=== PATIENT | female | born 1980 | race Hispanic/Latino ===

== ENCOUNTER 2019-01-02 15:59 | Outpatient (CLI) | payer BC ==
--- NOTE | 2019-01-02 16:44 | ULT ---
FTransabdominal pelvic ultrasound: 01/02/2019 COMPARISON: None available HISTORY: 38-year-old female with positive urine test and vaginal bleeding TECHNIQUE: Multiplanar grayscale sonographic imaging of the pelvis obtained with transabdominal imagi ng. The ovaries are assessed with color flow and spectral analysis FINDINGS: The uterus measures 13.3 x 10.5 x 10.1 cm. There is no intrauterine gestational sac seen. T here is a large heterogeneously hypoechoic lesion in the expected location of the endometrial canal m easuring 8.4 x 7.3 cm. The endometrial stripe cannot be visualized on this exam. No free fluid is seen in the pelvis. The right ovary measures 3.4 x 2.6 cm and demonstrates normal blood flow without evidence for mass. Left ovary measures 2.6 x 2.3 cm and contains a 1.4 cm follicle. Normal blood flow noted within the l eft ovary. IMPRESSION: No intrauterine gestation seen. Large heterogeneously hypoechoic lesion within the expect ed location of the endometrial canal. This may represent a large submucosal fibroid. Molar cannot be excluded. Correlation with quantitative beta hCG is essential. A normal early or sonographically occult ectopic cannot be excluded. Results called to Agatha Nava at 4:40 PM 01/02/2019 Code CR
== END 2019-01-02 16:00 | disposition home or self-care (01) ==
LOC: SCSULT 15:59
PROVIDERS: ATTEND Nurse Practitioner
DX: O20.9 Hemorrhage in early pregnancy, unspecified (principal); N85.8 Other specified noninflammatory disorders of uterus
CPT/HCPCS: 76856; 93976